=== PATIENT | male | born 1960 | race Asian ===

== ENCOUNTER 2024-02-04 19:11 | Emergency (ER) | payer SELFPAY ==
[2024-02-04 19:26] VITALS: BP 157/93; PULSE 88; RESP 18; TEMP 36.6; O2SAT 99; BMI 28.1
--- NOTE | 2024-02-04 19:44 | ED.GENADULT ---
HPI - General Adult General Chief complaint: Extremity Injury, Upper Stated complaint: cut rt hand Time Seen by Provider: 02/04/24 19:36 Source: patient Mode of arrival: Ambulatory History of Present Illness HPI narrative: 63-year-old male here for evaluation of a cut to his right hand. It occurred this evening when he was cooking. He sustained a cut to the back his right little finger. No other injuries from the event. Related Data Allergies Allergy/AdvReac Type Severity Reaction Status Date / Time No Known Drug Allergies Allergy Verified 02/04/24 20:47 Review of Systems Musculoskeletal Musculoskeletal: Reports system reviewed and no additional complaints, except as documented Integumentary/Breasts Skin/Breast: Reports system reviewed and no additional complaints, except as documented Neurologic Neurologic: Reports system reviewed and no additional complaints, except as documented Patient History Social History Smoking Status: Current every day smoker Smoking Status: Current every day smoker alcohol intake frequency: a few times a month Substance Use Type: does not use Exam Initial Vital Signs Initial Vital Signs: Vital Signs Temperature 98 F 02/04/24 19:26 Pulse Rate 88 02/04/24 19:26 Respiratory Rate 18 02/04/24 19:26 Blood Pressure 157/93 H 02/04/24 19:26 Pulse Oximetry 99 02/04/24 19:26 Oxygen Delivery Method Room Air 02/04/24 19:26 Skin Other: Patient with a 2 cm total length ?V? shaped laceration to the dorsum of the right little finger in between the MCP and PIP joint. Neuro Sensory Exam: no sensory deficits noted Extrem Other: Full range motion of the PIP and DIPJ joint of the right little finger Procedures Laceration Repair Laceration 1: Site: hand Side (If applicable): right Size (cm): 2 Description: flap Depth: simple, single layer Local Anesthetic: lidocaine 1% Amount of anesthesia used (mL): 4 Pre-repair: wound explored, irrigated extensively and deep structures intact Skin layer closed with: nylon Skin layer suture size: 4-0 Number of sutures: 5 Technique: simple, interrupted Course Orders Ordered: Discontinued Medications Bacitracin (Bacitracin Oint 0.9 Gm Pckt) 1 applic TOP NOW ONE Stop: 02/04/24 20:45 Last Admin: 02/04/24 21:02 Dose: 1 applic Documented By: Lidocaine HCl (Lidocaine 1% 20 Ml) 20 ml INJ INTRA-OP ONE Stop: 02/04/24 19:47 Last Admin: 02/04/24 20:30 Dose: 20 ml Documented By: Vital Signs Vital signs: Vital Signs - 8 hr 02/04/24 19:26 02/04/24 20:55 Temperature 98 F Pulse Rate 88 77 Respiratory Rate 18 16 Blood Pressure 157/93 H 133/89 Pulse Oximetry 99 98 Oxygen Delivery Method Room Air Room Air Medical Decision Making MDM Narrative Medical decision making narrative: Wound was irrigated. Deep structures intact. Closed as described above. Patient was given care instructions and return precautions. He expressed understanding and agreement. Discharge Plan Departure Patient Disposition: Home Clinical Impression: Laceration of hand Instructions: DI for Laceration Repair Activity Restrictions/Additional Instructions: The stitches will need to be removed in approximately 7 days. You can go to the walk-in clinic or your primary doctor for this. Recommend a topical antibiotic ointment such as Neosporin or bacitracin what you can purchase [id number]. You can wash your hands like normal after 24 hours. Return to the emergency department for new symptoms. Referrals: Miscellaneous,Doctor, [Primary Care Provider] - Stand Alone Forms: Patient Portal/API
--- NOTE | 2024-02-04 19:44 | PC.NURSE ---
right pinky finger laceration with home knife. Cleaned entire right hand wound with sterile water.
[2024-02-04] MEDS: LIDOCAINE 1% 20 ML INJ (20:30)
[2024-02-04 20:55] VITALS: BP 133/89; PULSE 77; RESP 16; O2SAT 98
[2024-02-04] MEDS: BACITRACIN OINT 0.9 GM PCKT 1 APPLIC TOP (21:02)
== END 2024-02-04 21:05 | disposition home or self-care (01) ==
PROVIDERS: Emergency Provider Emergency Medicine
DX: S61.216A Laceration without foreign body of right little finger without damage to nail, initial encounter (principal); W26.0XXA Contact with knife, initial encounter
CPT/HCPCS: 12001; 99282; 99283